=== PATIENT | male | born 1935 | race Caucasian/White ===

== ENCOUNTER 2019-04-28 12:17 | Emergency (ER) | payer MEDICARE ==
[~2019-04-28] VITALS: Ht 182.9 cm; Wt 87.7 kg
[2019-04-28 13:16] LABS: BASOPHILS % (AUTO) 0.6 % (0-1); EOSINOPHILS % (AUTO) 0.5 % (0-6); HEMATOCRIT 39.7 % (42.0-52.0); HEMOGLOBIN 13.3 g/dl (14.0-17.9); LYMPHOCYTES # (AUTO) 0.5 X10'3 (1.1-4.8); LYMPHOCYTES % (AUTO) 9.2 % (21-51); MEAN CORPUSCULAR HEMOGLOBIN 31.3 PG (27.0-31.0); MEAN CORPUSCULAR HGB CONC 33.5 g/dL (33.0-36.5); MEAN CORPUSCULAR VOLUME 93.7 FL (78-98); MEAN PLATELET VOLUME 9.1 FL (7.4-10.4); MONOCYTES # (AUTO) 0.3 X10'3 (0-0.9); MONOCYTES % (AUTO) 5.8 % (2-12); NEUTROPHILS # (AUTO) 4.2 X10'3 (1.8-7.7); NEUTROPHILS % (AUTO) 83.9 % (42-75); PLATELET COUNT 151 X10'3 (140-440); RED BLOOD COUNT 4.24 X10'6 (4.70-6.10); RED CELL DISTRIBUTION WIDTH 14.4 % (11.5-14.5)
[2019-04-28 13:27] LABS: ALANINE AMINOTRANSFERASE 20 U/L (12-78); ALBUMIN 3.8 G/DL (3.4-5.0); ALBUMIN/GLOBULIN RATIO 1.1 (1.1-1.5); ALKALINE PHOSPHATASE 71 IU/L (46-116); ANION GAP 8 (8-16); ASPARTATE AMINO TRANSFERASE 13 U/L (10-37); BILIRUBIN,TOTAL 0.5 MG/DL (0.1-1.0); BLOOD UREA NITROGEN 9 MG/DL (7-18); BUN/CREATININE RATIO 10.6 (5.4-32.0); CALCIUM 9.1 MG/DL (8.5-10.1); CHLORIDE 107 MMOL/L (99-107); CREATININE 0.85 MG/DL (0.60-1.10); GLUCOSE 99 MG/DL (70-104); POTASSIUM 3.7 MMOL/L (3.5-5.1); SODIUM 143 MMOL/L (135-145); TOTAL CARBON DIOXIDE 28.5 MMOL/L (24-32); TOTAL PROTEIN 7.3 G/DL (6.4-8.2); eGFR 87 ML/MIN
[2019-04-28 13:36] LABS: MAGNESIUM 2.1 MG/DL (1.5-2.4)
[2019-04-28 14:18] VITALS: BP 169/91
== END 2019-04-28 14:21 | disposition home or self-care (01) ==
LOC: ER 12:18
DX: R55 Syncope and collapse (principal); R53.1 Weakness; I10 Essential (primary) hypertension; F41.9 Anxiety disorder, unspecified; Z88.1 Allergy status to other antibiotic agents; Z91.013 Allergy to seafood
CPT/HCPCS: 36415; 71045; 80053; 83735; 83880; 84484; 85025; 93005; 99284

== ENCOUNTER 2019-05-17 12:09 | Observation (INO) | payer OTHER ==
[~2019-05-17] VITALS: Ht 182.9 cm; Wt 88.2 kg
[2019-05-17 13:03] LABS: BASOPHILS % (AUTO) 0.4 % (0-1); EOSINOPHILS # (AUTO) 0.1 X10'3 (0-0.9); HEMATOCRIT 41.4 % (42.0-52.0); HEMOGLOBIN 13.9 g/dl (14.0-17.9); LYMPHOCYTES # (AUTO) 0.9 X10'3 (1.1-4.8); LYMPHOCYTES % (AUTO) 15.9 % (21-51); MEAN CORPUSCULAR HEMOGLOBIN 31.5 PG (27.0-31.0); MEAN CORPUSCULAR HGB CONC 33.5 g/dL (33.0-36.5); MEAN CORPUSCULAR VOLUME 94.2 FL (78-98); MEAN PLATELET VOLUME 8.7 FL (7.4-10.4); MONOCYTES # (AUTO) 0.4 X10'3 (0-0.9); MONOCYTES % (AUTO) 6.5 % (2-12); NEUTROPHILS # (AUTO) 4.2 X10'3 (1.8-7.7); NEUTROPHILS % (AUTO) 76.2 % (42-75); PLATELET COUNT 188 X10'3 (140-440); RED CELL DISTRIBUTION WIDTH 14.5 % (11.5-14.5); WHITE BLOOD COUNT 5.5 X10'3 (4.5-11.0)
[2019-05-17 13:14] LABS: ALANINE AMINOTRANSFERASE 19 U/L (12-78); ALBUMIN 3.9 G/DL (3.4-5.0); ALKALINE PHOSPHATASE 77 IU/L (46-116); ANION GAP 7 (8-16); ASPARTATE AMINO TRANSFERASE 17 U/L (10-37); BILIRUBIN,TOTAL 0.3 MG/DL (0.1-1.0); BLOOD UREA NITROGEN 12 MG/DL (7-18); BUN/CREATININE RATIO 11.9 (5.4-32.0); CALCIUM 9.1 MG/DL (8.5-10.1); CHLORIDE 106 MMOL/L (99-107); CREATININE 1.01 MG/DL (0.60-1.10); GLUCOSE 101 MG/DL (70-104); POTASSIUM 3.7 MMOL/L (3.5-5.1); SODIUM 142 MMOL/L (135-145); TOTAL CARBON DIOXIDE 29.3 MMOL/L (24-32); TOTAL PROTEIN 7.9 G/DL (6.4-8.2); eGFR 71 ML/MIN
[2019-05-17 13:21] LABS: MAGNESIUM 2.3 MG/DL (1.5-2.4)
[2019-05-17] MEDS ORDERED: ondansetron/PF 4mg/2ml inj IV PRN (14:00)
[2019-05-17] MEDS ORDERED: mag hydrox/Alum hydrox/simeth 30ml oral suspension PO PRN (14:00)
[2019-05-17] MEDS ORDERED: magnesium hydroxide 30ml (MOM) UD suspension PO PRN (14:00)
[2019-05-17] MEDS ORDERED: acetaminophen 325mg tablet PO PRN ×2 (14:00)
[2019-05-17] MEDS ORDERED: morphine 2 MG/ML inj. syringe IV PRN ×2 (14:00)
[2019-05-17 15:10] LABS: CLARITY,URINE CLEAR (Clear); COLOR,URINE YELLOW (Yellow); GLUCOSE, URINE NEGATIVE (Neg); KETONES,URINE NEGATIVE (Neg); LEUKOCYTE ESTERASE ,URINE NEGATIVE (Neg); NITRITES, URINE NEGATIVE (Neg); OCCULT BLOOD,URINE NEGATIVE (Neg); PROTEIN,URINE NEGATIVE (Neg)
[2019-05-17 15:11] LABS: UA COLLECTION TYPE CLN CATCH MIDSTREAM
[2019-05-17] MEDS: normal saline 1000ml 1,000 ML IV SCH (15:38)
--- NOTE | 2019-05-17 16:45 | NUR ---
Patient is admitted to Room PCU 3013A from room ED 1. I have received report from Titus DEAL and had the opportunity to ask questions and assume patient care. Tele monitor 46 placed, IVF running per md order, oriented pt to room, call light w/in reach, Echo is in process, will continue to monitor.
[2019-05-17] MEDS ORDERED: TRAZ-251 PO (17:04)
[2019-05-17] MEDS ORDERED: AMLO10TA PO (17:04)
[2019-05-17] MEDS ORDERED: MIRA50TA PO (17:04)
[2019-05-17] MEDS ORDERED: SERT100T10 PO ×2 (17:04→18:25)
[2019-05-17] MEDS ORDERED: METO50TA7 PO ×2 (17:04→18:25)
--- NOTE | 2019-05-17 17:05 | NUR ---
PAGER ID: [phone] MESSAGE: [id number] Scottie Melgar: LELA BP 196/83 Map 120, HR 59, pt c/o dizziness no headache. Thanks Dajuan [phone]
[2019-05-17 17:15] VITALS: BP 196/83
[2019-05-17 17:30] VITALS: BP 185/76
--- NOTE | 2019-05-17 17:31 | NUR ---
PAGER ID: [phone] MESSAGE: [id number] Scottie Melgar: Pt took amlodipine in the morning has not taken metoprolol yet, he usually takes 25mg at bedtime, BP is 185/76 Hr 60, do you want me to give metoprolol now? Thanks Dajuan [phone]
--- NOTE | 2019-05-17 17:38 | NUR ---
received orders for Hydralazine 10 mg IV q6h PRN for SBP > [address] Riddle
[2019-05-17] MEDS ORDERED: hydrALAZINE 20mg/ml inj. IV PRN (17:40)
[2019-05-17 18:00] VITALS: BP 123/76
--- NOTE | 2019-05-17 18:19 | NUR ---
Problems reprioritized. Patient report given, questions answered & plan of care reviewed with Erinn DEAL.
--- NOTE | 2019-05-17 18:24 | NUR ---
PAGER ID: [phone] MESSAGE: [id number] Scottie Melgar: Hydralazine given, BP 156/72 Hr 71, do you still want to continue IVF NS 100cc/hr? Thanks Dajuan [phone]
--- NOTE | 2019-05-17 18:30 | NUR ---
Patient in room PCU 3013. I have received report from Gopi Burch and had the opportunity to ask questions and assume patient care.
[2019-05-17 20:00] VITALS: BP_SYST 162; BP_SYST 177; BP_DIAS 70; BP_DIAS 79; BP_DIAS 85
[2019-05-17] MEDS ORDERED: traZODone 50mg tablet PO ONE (21:25)
[2019-05-17 22:00] VITALS: BP 111/72
[2019-05-18] MEDS: normal saline 1000ml 1,000 ML IV SCH (00:09)
[2019-05-18 01:25] LABS: BASOPHILS % (AUTO) 0.4 % (0-1); EOSINOPHILS # (AUTO) 0.1 X10'3 (0-0.9); EOSINOPHILS % (AUTO) 1.4 % (0-6); HEMATOCRIT 39.9 % (42.0-52.0); HEMOGLOBIN 13.6 g/dl (14.0-17.9); LYMPHOCYTES # (AUTO) 1.1 X10'3 (1.1-4.8); LYMPHOCYTES % (AUTO) 16.8 % (21-51); MEAN CORPUSCULAR HEMOGLOBIN 31.4 PG (27.0-31.0); MEAN CORPUSCULAR VOLUME 92.3 FL (78-98); MEAN PLATELET VOLUME 9.3 FL (7.4-10.4); MONOCYTES # (AUTO) 0.4 X10'3 (0-0.9); MONOCYTES % (AUTO) 6.3 % (2-12); NEUTROPHILS % (AUTO) 75.1 % (42-75); PLATELET COUNT 182 X10'3 (140-440); RED BLOOD COUNT 4.33 X10'6 (4.70-6.10); RED CELL DISTRIBUTION WIDTH 14.2 % (11.5-14.5); WHITE BLOOD COUNT 6.6 X10'3 (4.5-11.0)
[2019-05-18 02:00] VITALS: BP_SYST 162; BP_SYST 177; BP_DIAS 70; BP_DIAS 79; BP_DIAS 85
[2019-05-18 02:33] LABS: ALBUMIN 3.3 G/DL (3.4-5.0); ANION GAP 8 (8-16); BLOOD UREA NITROGEN 14 MG/DL (7-18); BUN/CREATININE RATIO 16.9 (5.4-32.0); CALCIUM 9.1 MG/DL (8.5-10.1); CHLORIDE 107 MMOL/L (99-107); CREATININE 0.83 MG/DL (0.60-1.10); GLUCOSE 107 MG/DL (70-104); POTASSIUM 3.4 MMOL/L (3.5-5.1); SODIUM 141 MMOL/L (135-145); TOTAL CARBON DIOXIDE 26.3 MMOL/L (24-32); eGFR 89 ML/MIN
--- NOTE | 2019-05-18 06:00 | NUR ---
Patient in room PCU 3013. I have received report from Erinn DEAL and Iris DEAL and had the opportunity to ask questions and assume patient care.
--- NOTE | 2019-05-18 06:11 | NUR ---
Problems reprioritized. Patient report given, questions answered & plan of care reviewed with SAY Valles.
[2019-05-18 08:00] VITALS: BP_SYST 187; BP_SYST 188; BP_SYST 192; BP_DIAS 78; BP_DIAS 94; BP_DIAS 99
--- NOTE | 2019-05-18 12:15 | NUR ---
Per MD orders, patient stable for discharge home. Discharge instructions and prescriptions reviewed with patient and spouse and all questions/inquiries answered to patient satisfaction. Patient will schedule own appointment within a week for convenience. Tele monitoring and PIV discontinued; cannula intact. All belongings sent with patient. Offered wheelchair transfer but opted to ambulated to private vehicle accompanied by .
[2019-05-18] MEDS ORDERED: traZODone 50mg tablet PO SCH (21:00)
== END 2019-05-18 12:15 | disposition home or self-care (01) ==
LOC: ER 12:10 → ED HOLD 14:17 → EDBEDREQ 15:48 → PCU 3S 17:12
PROVIDERS: ADMIT Internal Medicine; ATTEND Internal Medicine
DX: R55 Syncope and collapse (principal); R42 Dizziness and giddiness; I35.0 Nonrheumatic aortic (valve) stenosis; I10 Essential (primary) hypertension; R00.1 Bradycardia, unspecified; E78.00 Pure hypercholesterolemia, unspecified; F41.9 Anxiety disorder, unspecified; Z85.118 Personal history of other malignant neoplasm of bronchus and lung; Z87.891 Personal history of nicotine dependence; Z77.090 Contact with and (suspected) exposure to asbestos; Z79.899 Other long term (current) drug therapy; Z88.1 Allergy status to other antibiotic agents
CPT/HCPCS: 36415; 71045; 80048; 80053; 81003; 83735; 83880; 84443; 84484; 85025; 87081; 93005; 93306; 96361; 96374; 99284; G0378; J0360; J7030